=== PATIENT | male | born 1975 | race African-American/Black ===

== ENCOUNTER 2021-03-23 11:05 | Emergency (ER) | payer OTHER ==
[~2021-03-23] VITALS: Ht 175.3 cm; Wt 79.4 kg
[2021-03-23 12:57] LABS: ABSOLUTE NEUTROPHILS 3.4 thou/uL (1.4-8.2); BASOPHILS 0.9 % (0.0-2.0); EOSINOPHILS 2.6 % (0.0-3.0); HEMATOCRIT 46.5 % (42.0-52.0); HEMOGLOBIN 15.4 gm/dL (14.0-18.0); LYMPHOCYTES 40.6 % (24.0-44.0); MCH 26.3 pg (26.0-34.0); MCHC 33.1 g/dL (28.0-37.0); MCV 79.3 fL (80.0-100.0); MONOCYTES 7.7 % (1.0-8.0); PLATELET COUNT 152 thou/uL (150-400); POLYS 48.2 % (36.0-66.0); RBC 5.87 mil/uL (4.50-6.00); RDW 15.9 % (10.5-14.5)
[2021-03-23 13:04] LABS: CALCIUM 9.3 mg/dL (8.5-10.1); CREATININE 1.5 mg/dL (0.7-1.3); POTASSIUM 3.9 mmol/L (3.5-5.1)
[2021-03-23 13:16] LABS: ALBUMIN 3.8 g/dL (3.4-5.0); TOTAL BILIRUBIN 0.7 mg/dL (0.2-1.0); TOTAL PROTEIN 7.4 g/dL (6.4-8.2)
[2021-03-23 13:39] LABS: URINE BILIRUBIN NEGATIVE (Negative); URINE BLOOD NEGATIVE (Negative); URINE CLARITY CLEAR; URINE COLOR YELLOW; URINE GLUCOSE-RANDOM* NEGATIVE (Negative); URINE KETONES NEGATIVE (Negative); URINE LEUKOCYTES-REFLEX TRACE (Negative); URINE NITRITE-REFLEX NEGATIVE (Negative); URINE PROTEIN (DIPSTICK) NEGATIVE (Negative); URINE SPECIFIC GRAVITY 1.015 (1.005-1.035); URINE UROBILINOGEN 0.2 E.U./dl (0.2-1.0)
[2021-03-23 16:02] VITALS: BP 213/120
--- NOTE | 2021-03-24 08:10 | EKG ---
[place] [address] [place] [address] ELECTROCARDIOGRAM REPORT Name: CHERI WALTERS Room #: DEP DAR [place]#: [id number] Admission: 03/23/21 Attend Phys: Discharge: 03/23/21 Date of : 75 Report #: [id number] [facility] ED Test Date: 2021-03-23 Test Time: 13:15:37 Pat Name: CHERI WALTERS Department: Room: Gender: Bar Attendant: ANGEL : 1975 Requested By: Natalie Trinidad Order Number: [id number] MD: Shimon Byers Measurements Intervals [place] Rate: 56 P: 60 MO: 177 QRS: 17 QRSD: 95 T: 38 QT: 461 QTc: 445 Interpretive Statements Sinus rhythm Left ventricular hypertrophy Baseline wander in lead(s) V3,V4,V6 No previous ECG available for comparison Electronically Signed On 03-24-2021 8:09:48 CURATOR OF EDUCATION by Shimon Byers [email or web address] <ELECTRONICALLY SIGNED> By: Shimon Byers MD, [facility] 03/24/21 0809 1315 1315 Shimon Byers MD, FACC /EPI
== END 2021-03-23 16:02 | disposition home or self-care (01) ==
LOC: ER 11:05 → EDBD 11:05 → ER 16:02
PROVIDERS: Physician Assistant
DX: R10.10 Upper abdominal pain, unspecified (principal); I10 Essential (primary) hypertension